=== PATIENT | female | born 1995 | race Caucasian/White ===

== ENCOUNTER 2021-09-04 12:20 | Emergency (ER) | payer MEDICAID, SELFPAY ==
--- NOTE | ~2021-09-04 | US_ITS ---
EXAMINATION: US VENOUS WITH DOPPLER UPPER EXTREMITY, LEFT CLINICAL INFORMATION: Left wrist swelling. COMPARISON: None TECHNIQUE: Ultrasound of the upper extremity is performed using compression sonography and color and pulse Doppler flow with assessment of augmentation of flow. There is also imaging and Doppler assessment of the jugular and subclavian veins. Spectral analysis with color-flow imaging is performed. FINDINGS: Respiratory variation, normal compression, and augmented flow are noted throughout the upper extremity including the axillary, brachial, cubital, and radial and ulnar veins. There is normal flow in the internal jugular and subclavian veins. There is no visible deep or superficial thrombophlebitis. If the patient's symptoms progress, a followup ultrasound in 5 -7 days might be of value to exclude proximal propagation from a nonvisualized distal arm vein. US/US venous duplex UE LT IMPRESSION: No DVT demonstrated in left arm.
--- NOTE | ~2021-09-04 | XR_ITS ---
EXAMINATION: LEFT WRIST CLINICAL INFORMATION: Left wrist near navicular COMPARISON: None TECHNIQUE: 3 views left wrist plus navicular view FINDINGS: No significant bone, joint or soft tissue abnormality is noted. An accessory ossicle is noted at the styloid. XR/XR hand wrist LT IMPRESSION: No significant abnormality detected.
[2021-09-04 12:36] VITALS: BP 137/77; PULSE 87; RESP 18; TEMP 36.7; O2SAT 99; BMI 23.6
[2021-09-04] MEDS: Acetaminophen 325 MG TABLET 650 MG PO (12:42)
--- NOTE | 2021-09-04 15:00 | ED_ITS ---
HPI - Extremity Problem General Chief complaint: Extremity Injury, Upper Stated complaint: wrist pain Time Seen by Provider: 09/04/21 12:46 Source: patient Mode of arrival: ambulatory Limitations: no limitations History of Present Illness HPI Narrative: 25-year-old female with no significant past medical history presenting to the ED with complaints of atraumatic left wrist pain/swelling for the past 3 days worse today. He reports associated limited range of motion due to pain. She reports she cannot remember when this started although she denies any injury. She denies any fevers, chills, dizziness, headache, neck pain/stiffness, trouble swallowing or breathing, paresthesias, dyspnea on exertion, orthopnea, palpitations, lower extremity edema or calf tenderness, recent travel or sick contacts, history of estrogen usage, history of DVT or PE, history of PVD disease, recent immobilization or surgery, history of gout or any other symptoms complaints or concerns at this time. MD Complaint: extremity pain and extremity swelling Onset (ago): day(s) (3) Pain Consistency: constant Location: left and upper extremity (wrist radial aspect ) Quality: aching Radiation: none Relieving factors: nothing Exacerbating factors: range of motion and palpation Associated symptoms: denies other symptoms Related Data Previous Rx's Medication Instructions Recorded dexamethasone 6 mg tablet 6 mg PO ONCE #1 tab 09/04/21 (Decadron) naproxen 500 mg tablet 500 mg PO BID PRN #14 tab 09/04/21 Allergies Allergy/AdvReac Type Severity Reaction Status Date / Time No Known Allergies Allergy Verified 09/04/21 12:36 Review of Systems Review of Systems: Constitutional : No Weight loss, No Fever, No Chills, No Night Sweats, No Fatigue, No Malaise ENT/Mouth : No Hearing loss, No Ear Pain, No Nasal Congestion, No Sinus Pain, No Hoarseness, No sore throat, No Rhinorrhea, No Swallowing Difficulty Eyes: No Eye Pain, No Swelling, No Redness, No Foreign Body, No Discharge, No Vision Changes Cardiovascular : No Chest Pain, No SOB, No Dyspnea on Exertion, No Orthopnea, No Edema, No Palpitations Respiratory : No Cough, No Sputum, No Wheezing, No Smoke Exposure, No Dyspnea Gastrointestinal : No Nausea, No Vomiting, No Diarrhea, No Constipation, No abdominal Pain, No Hematochezia, No Melena Genitourinary : no irregular bleeding, No Dysuria, No Urinary Frequency, No Hematuria, No Urinary Incontinence, No Urgency, No Flank Pain, No Urinary Flow Changes, No Hesitancy Musculoskeletal : + left wrist joint pain/swelling, No Myalgias Skin : No Skin Lesions, No rash Neuro : No Weakness, No Numbness, No Paresthesias, No Loss of Consciousness, No Dizziness, No Headache Psych : No Anxiety/Panic, No Depression, No SI/HI/AH/VH, No Social Issues, Heme/Lymph: No Bruising, No Bleeding,No Lymphadenopathy Endocrine : No Polyuria, No Polydipsia, No Temperature Intolerance Yes all other systems are reviewed and are negative [facility] Past Medical History Attestation statement: The following information was validated with the patient. Medical History No pertinent past medical history Social History Social History Advance Directives: No Advance Directives Information Provided: Yes Patient : No Physical Exam Vital Signs: Vital Signs: Last Vital Signs Temp 97.5 F 09/04/21 15:49 Pulse 84 09/04/21 15:49 Resp 16 09/04/21 15:49 BP 125/75 09/04/21 15:49 Pulse Ox 99 09/04/21 15:49 BMI result Body Mass Index 23.6 vital signs have been reviewed as normal and appeared to be correct. Blood pressure normal. Heart rate normal. Respiration rate normal. Temperature normal. Oxygen saturation normal. Appearance: Alert. Oriented X3. No acute distress. Head: Normal external exam. Normocephalic. Atraumatic. Eyes: PERRLA. EOMI. Conjunctiva and sclera normal. Eyelids normal. ENT: Pharynx normal. Uvula midline. Moist mucous membranes. Normal voice. Neck: Normal inspection. Neck supple. FROM. No adenopathy. No tracheal deviation noted. No crepitus is noted. No meningeal signs. No neck mass noted. CVS: Normal heart rate and rhythm. Heart sound normal. Pulses normal throughout. No murmurs/rales/gallops. Respiratory: No respiratory distress. Painless inspiration. Breath sounds normal. No wheezes/rales/rhonchi noted. Chest nontender. No crepitus is noted. No signs of trauma noted. No accessory muscle usage noted or decreased air movement noted. No signs of trauma. Abdomen: Soft and nontender. Bowel sounds normal in all 4 quadrants. No distention noted. No organomegaly noted. No visible injury noted. Back: Full range of motion noted. Skin: Skin warm and dry. Normal skin color. Normal skin turgor. No rashes/lesions/lacerations noted. Extremities: Patient with tenderness to palpation and soft tissue swelling to the left wrist at the radial aspect. She does have limited range of motion of the wrist with flexion due to pain. No obvious ligamentous or tendon injury noted. No erythema/streaking/induration/fluctuance or signs of infection noted. No upper or lower extremity edema noted. No calf tenderness is noted. Otherwise all other Extremities exhibit normal range of motion and nontender. Neuro: Oriented X 3. No motor deficit. No sensory deficit. Reflexes normal. Normal steady gait. No focal neuro deficits noted. CN's II-XII intact bilaterally? Vascular: + radial pulses/+ 2 distal pedal pulses/+2 dorsalis pedis b/l. Normal cap refill. No cyanosis noted to upper extremity nails and lower extremity toes nails. Course Course Course Narrative: 13:55pm - 25-year-old female with no significant past medical history presenting to the ED with complaints of atraumatic left wrist pain/swelling for the past 3 days worse today. He reports associated limited range of motion due to pain. She reports she cannot remember when this started although she denies any injury. Plan: X-ray obtained while the patient was in the waiting room and negative for any acute processes. We will obtain a ultrasound to evaluate for possible DVT or an abscess then re-evaluate. Reevaluation(s) Reevaluation #1: - x-ray negative for any acute processes. Venous duplex ultrasound negative for DVT. On my exam there are no signs of infection. Therefore at this time patient most likely wrist strain. Will place in a cock-up splint Velcro and treat symptomatic long with instructions return if any new or worsening symptoms to follow up with primary care provider. Patient understands agrees with plan. Time: 16:06 [facility] - Extremity (Nontraumatic) Medical Records Attestation: I reviewed the patient's medical records. Imaging Data Left hand and wrist x-ray: Attestation: I personally reviewed and interpreted this imaging study as follows: Radiologist's impression: FINDINGS: No significant bone, joint or soft tissue abnormality is noted. An accessory ossicle is noted at the styloid.? XR/XR hand wrist LT IMPRESSION: No significant abnormality detected.? Venous duplex ultrasound of left upper extremity: Attestation: I personally reviewed and interpreted this imaging study as follows: Radiologist's impression: FINDINGS: Respiratory variation, normal compression, and augmented flow are noted throughout the upper extremity including the axillary, brachial, cubital, and radial and ulnar veins. There is normal flow in the internal jugular and subclavian veins. There is no visible deep or superficial thrombophlebitis. If the patient's symptoms progress, a followup ultrasound in 5 -7 days might be of value to exclude proximal propagation from a nonvisualized distal arm vein. US/US venous duplex UE LT IMPRESSION: No DVT demonstrated in left arm. Procedures Orthopedic Splinting/Casting Injury #1: Side: left Upper Extremity Injury Location: wrist and hand Upper Extremity Immobilizer: wrist splint Discharge Plan Discharge Clinical Impression: Sprain and strain of wrist Patient Disposition: Home, Self-Care Instructions: Wrist Sprain (ED) Prescriptions: New naproxen 500 mg tablet 500 mg PO BID PRN (Reason: pain) Qty: 14 0RF dexamethasone [Decadron] 6 mg tablet 6 mg PO ONCE Qty: 1 0RF Referrals: [facility] [Primary Care Provider] - 2 days Print Language: Mohawk
[2021-09-04 15:43] VITALS: BP 125/75; PULSE 84; RESP 16; TEMP 36.4; O2SAT 99
[2021-09-04 15:49] VITALS: BP 125/75; PULSE 84; RESP 16; TEMP 36.4; O2SAT 99
== END 2021-09-04 16:16 | disposition home or self-care (01) ==
PROVIDERS: Emergency Provider Emergency Medicine
DX: S63.502A Unspecified sprain of left wrist, initial encounter (principal); M25.532 Pain in left wrist; R60.0 Localized edema; X58.XXXA Exposure to other specified factors, initial encounter; Y93.9 Activity, unspecified; Y92.9 Unspecified place or not applicable; Y99.9 Unspecified external cause status; Z79.899 Other long term (current) drug therapy
CPT/HCPCS: 29125; 73110; 73130; 93971; 99284